=== PATIENT | female | born 1965 | race African-American/Black ===

== ENCOUNTER 2018-09-23 21:18 | Emergency (ER) | payer OTHER ==
[2018-09-23 21:36] VITALS: BP 165/105
[2018-09-23] MEDS ORDERED: Amoxicillin PO (*) 500 MG CAP PO ONE (21:55)
--- NOTE | 2018-09-23 21:59 | UC ---
Respiratory Complaint HPI - HPI Summary HPI Summary: 53 yo female with one week hx of sinus pressure and pain/post nasal drip and sore throat no f/c some productive cough no n/v/d - History of Current Complaint Chief Complaint: UCRespiratory Stated Complaint: SORE THROAT Time Seen by Provider: 09/23/18 21:26 Hx Obtained From: Patient Onset/Duration: Gradual Onset, Lasting Days Timing: Constant Severity Initially: Mild Severity Currently: Severe Pain Intensity: 8 Pain Scale Used: 0-10 Numeric Character: Cough: Productive Aggravating Factors: Nothing Alleviating Factors: Nothing Associated Signs And Symptoms: Positive: Nasal Congestion, Hoarseness, Sinus Discomfort. Negative: Dyspnea, Fever, Chills, Pleuritic Chest Pain, Wheezing, Hemoptysis, Dizziness, Calf Pain, Calf Swelling, Edema - Allergies/Home Medications Allergies/Adverse Reactions: Allergies Allergy/AdvReac Type Severity Reaction Status Date / Time No Known Allergies Allergy Verified 09/23/18 21:36 PMH/Surg Hx/FS Hx/Imm Hx Previously Healthy: Yes - Surgical History Surgical History: None - Family History Known Family History: Positive: Hypertension, Diabetes, Respiratory Disease - Social History Alcohol Use: None Substance Use Type: None Smoking Status (MU): Never Smoked Tobacco Review of Systems All Other Systems Reviewed And Are Negative: Yes Constitutional: Positive: Negative Skin: Positive: Negative Eyes: Positive: Negative ENT: Positive: Sore Throat, Ear Ache, Nasal Discharge, Sinus Congestion, Sinus Pain/Tenderness Respiratory: Positive: Cough Cardiovascular: Positive: Negative Gastrointestinal: Positive: Negative Genitourinary: Positive: Negative Motor: Positive: Negative Neurovascular: Positive: Negative Musculoskeletal: Positive: Negative Neurological: Positive: Negative Psychological: Positive: Negative Physical Exam Triage Information Reviewed: Yes Appearance: Well-Appearing, No Pain Distress, Well-Nourished Vital Signs: Initial Vital Signs Temp 98.8 F 09/23/18 21:29 Pulse 90 09/23/18 21:29 Resp 16 09/23/18 21:29 BP 165/105 09/23/18 21:29 Pulse Ox 99 09/23/18 21:29 Vital Signs Reviewed: Yes Eyes: Positive: Conjunctiva Clear ENT: Positive: Hearing grossly normal, Pharyngeal erythema, Hoarse voice. Negative: Nasal congestion, Nasal drainage, Tonsillar swelling, Tonsillar exudate, Trismus, Sinus tenderness, Uvula midline Neck: Positive: Supple, Nontender, Enlarged Nodes @ - ant cervical Respiratory: Positive: Lungs clear, Normal breath sounds, No respiratory distress, No accessory muscle use Cardiovascular: Positive: RRR, No Murmur Musculoskeletal: Positive: ROM Intact, No Edema Neurological: Positive: Alert Psychological Exam: Normal Skin Exam: Normal Respiratory Course/Dx - Course Course Of Treatment: strep (-) - Differential Dx/Diagnosis Provider Diagnosis: Acute sinusitis, Elevated BP without diagnosis of hypertension Discharge - Sign-Out/Discharge Documenting (check all that apply): Patient Departure All imaging exams completed and their final reports reviewed: No Studies - Discharge Plan Condition: Stable Disposition: HOME Prescriptions: Amoxicillin PO (*) [Amoxicillin 875 MG (*)] 875 mg PO BID #14 tab Patient Education Materials: Sinusitis (ED) Referrals: Paul King MD [Primary Care Provider] - 5 Days (if not better) Additional Instructions: saline nasal spray 2 sprays each nostril twice daily warm facial compresses - Billing Disposition and Condition Condition: STABLE Disposition: Home
== END 2018-09-23 22:18 | disposition home or self-care (01) ==
LOC: UCEAST 21:18
DX: J01.90 Acute sinusitis, unspecified (principal); J02.9 Acute pharyngitis, unspecified; R03.0 Elevated blood-pressure reading, without diagnosis of hypertension
CPT/HCPCS: 87651; 99202; A9270-GY; G0463

== ENCOUNTER → 2018-11-29 21:17 | Emergency (ER) | payer OTHER ==
[~2018-11-29 21:17] MED LIST: Amoxicillin/Clavulanate TAB* 875 MG PO ONE; Ibuprofen TAB* 600 MG PO ONE
[2018-11-29 21:42] VITALS: BP 128/94
--- NOTE | 2018-11-29 22:06 | UC ---
UC General HPI - HPI Summary HPI Summary: 53-year-old female comes in with a chief complaint of right-sided facial pain. Started more than a week ago initially episodes lasted less than a day. It's been getting worse and more frequent. It's been constant the last 4 days. Pain is worse with palpation of the right side of the face and also with chewing. She does have dental fillings in her right-sided molars and they hurt more when she drinks cold water. The areas of tenderness at the angle of the jaw over the parotid gland at the TMJ on the right and into the lower right temporal area. No fevers or chills. No rash. - History of Current Complaint Chief Complaint: UCDentalProblem Stated Complaint: JAW PAIN Time Seen by Provider: 11/29/18 21:48 Hx Last Menstrual Period: 4 months ago Pain Intensity: 10 - Allergy/Home Medications Allergies/Adverse Reactions: Allergies Allergy/AdvReac Type Severity Reaction Status Date / Time No Known Allergies Allergy Verified 11/29/18 21:33 PMH/Surg Hx/FS Hx/Imm Hx Previously Healthy: Yes - Surgical History Surgical History: None - Family History Known Family History: Positive: Hypertension, Diabetes, Respiratory Disease - Social History Alcohol Use: None Substance Use Type: None Smoking Status (MU): Never Smoked Tobacco Review of Systems All Other Systems Reviewed And Are Negative: Yes Constitutional: Positive: Negative Skin: Positive: Negative Eyes: Positive: Negative ENT: Positive: Dental Pain, Ear Ache. Negative: Sore Throat, Nasal Discharge Respiratory: Positive: Negative Cardiovascular: Positive: Negative Gastrointestinal: Positive: Negative Genitourinary: Positive: Negative Motor: Positive: Negative Neurovascular: Positive: Negative Musculoskeletal: Positive: Negative Neurological: Positive: Negative Psychological: Positive: Negative Is Patient Immunocompromised?: No Physical Exam Triage Information Reviewed: Yes Appearance: Well-Appearing, No Pain Distress, Well-Nourished Vital Signs: Initial Vital Signs Temp 99.4 F 11/29/18 21:33 Pulse 77 11/29/18 21:33 Resp 18 11/29/18 21:33 BP 190/111 11/29/18 21:33 Pulse Ox 98 11/29/18 21:33 Vital Signs Reviewed: Yes Eye Exam: Normal Eyes: Positive: Conjunctiva Clear ENT: Positive: Pharynx normal, TMs normal, Uvula midline, Other - No ear canal inflammation. Patient is tender to palpation over the right parotid gland and also at the right TMJ. There is no rash seen on the face. She is tender in front of the ear in the lower temporal area but not in the full right femoral distribution.. Negative: Tonsillar swelling, Tonsillar exudate, Muffled voice, Hoarse voice Dental: Positive: Other: - Patient does have multiple fillings in both the upper and lower molars on the right side. Neck: Positive: Supple, Other: - No tenderness of the submandibular glands. Respiratory: Positive: No respiratory distress Musculoskeletal Exam: Normal Musculoskeletal: Positive: Strength Intact, ROM Intact Neurological Exam: Normal Neurological: Positive: Alert, Muscle Tone Normal Psychological Exam: Normal Psychological: Positive: Normal Response To Family, Age Appropriate Behavior Skin Exam: Normal Course/Dx - Course Course Of Treatment: I discussed the differential diagnosis of the area of her pain with the patient. TMJs a possibility as is right sided parotid gland inflammation. Temporal arteritis is less likely given the distribution of the pain down in to the jaw and cheek and it does not extend completely into the superior portion of the temporal area of the skull. No rash so I do not believe shingles is involved. The eardrums look normal year canals are normal also do not believe an ear infection is a problem. She does have multiple dental fillings and she has some pain in that area so dental infection is a possibility. Uvula midline no mass in the throat no difficulty swallowing. Overall the plan is to treat with anti-inflammatories such as ibuprofen and also treat with an antibiotic to cover any possible infection. Also told her about TMJ and sialoadenitis and the appropriate treatments. If not improved follow-up with primary care doctor and/or ENT. Get reevaluated sooner if worse. - Diagnoses Provider Diagnosis: Right-sided face pain Discharge - Sign-Out/Discharge Documenting (check all that apply): Patient Departure All imaging exams completed and their final reports reviewed: No Studies - Discharge Plan Condition: Stable Disposition: HOME Prescriptions: Amoxicillin/Clavulanate TAB* [Augmentin TAB 875*] 875 mg PO BID #18 tab Ibuprofen TAB* [Motrin TAB* 600 MG] 600 mg PO Q8H PRN #20 tab PRN Reason: Pain Patient Education Materials: Temporomandibular Disorder (ED), Sialoadenitis (ED ) Referrals: Paul King MD [Primary Care Provider] - Mario Cross MD [Medical Doctor] - Additional Instructions: FOLLOW UP WITH YOUR PRIMARY CARE DOCTOR OR DR CROSS, ENT, IF NOT COMPLETELY IMPROVED. GET RECHECKED SOONER IF YOUR CONDITION WORSENS OR ANY QUESTIONS OR CONCERNS. - Billing Disposition and Condition Condition: STABLE Disposition: Home
== END | disposition home or self-care (01) ==
LOC: UCEAST 21:17
DX: R51 Headache (principal); R68.84 Jaw pain
CPT/HCPCS: 99212; A9270-GY; G0463

== ENCOUNTER 2023-02-22 19:29 | Inpatient (IN) ==
[2023-02-22] MEDS ORDERED: Azithromycin 500 mg/250 ml NS 500 MG/250 ML BAG IVPB ONE (21:36)
[2023-02-22] MEDS ORDERED: LACTATED RINGERS SEPSIS IV ONE (21:36)
[2023-02-22] MEDS ORDERED: Piperacillin/Tazobac 3.375 BAG 3.375 GM/100 ML BAG IV ONE (21:36)
[2023-02-22] MEDS ORDERED: Lactated Ringers 1000 ml BAG 1,000 ML IV ONE ×2 (21:44→23:28)
[2023-02-22] MEDS ORDERED: Vancomycin 1,500 MG in NS 0.9% 250 ml 250 ML IVPB SCH (22:00)
[2023-02-22 22:18] LABS: ABS Lymphocytes 0.4 10^3/uL (1.0-4.8); ABS Monocytes 0.6 10^3/uL (0.0-0.9); ABS Neutrophils 12.3 10^3/uL (1.5-7.6); Hematocrit 33.1 % (35-45); Hemoglobin 11.5 g/dL (11.5-14.3); Lymphocyte % 3.3 %; Mean Corpuscular Hemoglobin 32.4 pg (27-33); Mean Corpuscular Hgb Conc 34.9 g/dL (31-36); Mean Corpuscular Volume 92.7 fL (80-97); Mean Platelet Volume 7.5 fL (7.5-11.2); Platelet Count 308 10^3/uL (150-450); Red Blood Count 3.57 10^6/uL (3.63-4.92); Red Cell Distribution Width 13.6 % (12-17); White Blood Count 13.4 10^3/uL (3.8-11.8)
[2023-02-22 22:31] LABS: Albumin 3.3 g/dL (3.2-5.2); Calcium 8.8 mg/dL (8.6-10.3); Potassium 2.9 mmol/L (3.5-5.0); Total Bilirubin 1.1 mg/dL (0.2-1.0)
[2023-02-22 22:32] LABS: Activated Partial Thrombo Time 31.5 seconds (26.0-38.0); INR 1.18 (0.83-1.13)
[2023-02-22] MEDS ORDERED: Ondansetron 4 mg VIAL 2 MG/ML 2 ml VIAL IV ONE (22:35)
[2023-02-22 22:38] LABS: Albumin/Globulin Ratio 0.8 (1-3); C Reactive Protein 460.28 mg/L (<8.01); Creatinine, Serum 1.96 mg/dL (0.51-0.95); Globulin 4.2 g/dL (2-4); Total Protein 7.5 g/dL (6.4-8.9); eGFR CKD-EPI 29.1 (>60)
[2023-02-23] LABS: High Sensitivity Troponin 1 Hr 13 pg/mL (<15)
[2023-02-23 00:35] LABS: Urine Amorphous Crystals Present (Absent); Urine Appearance Cloudy; Urine Bacteria 1+ (Absent); Urine Bilirubin Negative (Negative); Urine Blood 2+ (Negative); Urine Color Yellow; Urine Glucose Negative (Negative); Urine Ketones Negative (Negative); Urine Nitrite Negative (Negative); Urine Protein 2+(100 mg/dL) (Negative); Urine Red Blood Cell 2+(6-10/hpf) (Absent); Urine Specific Gravity 1.012 (1.002-1.030); Urine Squamous Epithelial Cell Present (Absent); Urine Urobilinogen Negative (Negative); Urine White Blood Cell 1+(6-10/hpf) (Absent); Urine Yeast Present (Absent)
[2023-02-23] MEDS ORDERED: Potassium Chlor 20 meq TAB.ER PO ONE ×2 (02:05→05:00)
[2023-02-23] MEDS ORDERED: Lactated Ringers 1000 ml BAG 1,000 ML IV SCH (03:00)
[2023-02-23] MEDS: Enoxaparin 30 MG/0.3 ML SYR SUBCUT SCH (03:38)
[2023-02-23] MEDS: NS 0.9% 1000 ml BAG 1,000 ML IV SCH ×2 (03:39→17:34)
[2023-02-23] MEDS ORDERED: Psyllium PAK PO PRN (03:46)
[2023-02-23 06:37] LABS: Hematocrit 31.2 % (35-45); Hemoglobin 10.8 g/dL (11.5-14.3); Mean Corpuscular Hemoglobin 32.2 pg (27-33); Mean Corpuscular Hgb Conc 34.6 g/dL (31-36); Mean Platelet Volume 7.7 fL (7.5-11.2); Platelet Count 275 10^3/uL (150-450); Red Blood Count 3.35 10^6/uL (3.63-4.92); Red Cell Distribution Width 13.6 % (12-17); White Blood Count 15.2 10^3/uL (3.8-11.8)
[2023-02-23 06:41] LABS: Potassium 2.9 mmol/L (3.5-5.0)
[2023-02-23 07:43] LABS: ABS Lymphocytes 0.7 10^3/uL (1.0-4.8); ABS Monocytes 0.8 10^3/uL (0.0-0.9); ABS Neutrophils 13.6 10^3/uL (1.5-7.6); Eosinophil % 0.1 %; Lymphocyte % 4.8 %
[2023-02-23] MEDS ORDERED: Influenza vaccine *QUAD* *2023-24* 0.5 ML SYRINGE IM ONE (09:00)
[2023-02-23] MEDS ORDERED: Magnesium Sulfate 2 gm BAG 2 GM/50 ML BAG IVPB ONE (09:06)
[2023-02-23 11:34] LABS: Albumin 2.8 g/dL (3.2-5.2); Calcium 8.4 mg/dL (8.6-10.3); Magnesium 2.2 mg/dL (1.9-2.7)
[2023-02-23 11:41] LABS: Albumin/Globulin Ratio 0.7 (1-3); Creatinine, Serum 1.96 mg/dL (0.51-0.95); Globulin 3.8 g/dL (2-4); Total Protein 6.6 g/dL (6.4-8.9); eGFR CKD-EPI 29.1 (>60)
[2023-02-23] MEDS: KCL 20 MEQ/100 ML IVPREMIX 20 MEQ/100 ML BAG IV SCH ×3 (13:40→20:06)
[2023-02-23] MEDS ORDERED: Acetylcysteine INHALATION SOL 200 MG/ML NEB.SOLN 10 ML INH PRN (17:17)
[2023-02-23] MEDS: Azithromycin 500 mg/250 ml NS 500 MG/250 ML BAG IVPB SCH (22:47)
[2023-02-24] MEDS: NS 0.9% 1000 ml BAG 1,000 ML IV SCH (03:27)
[2023-02-24] MEDS: Enoxaparin 30 MG/0.3 ML SYR SUBCUT SCH (03:29)
[2023-02-24 05:49] LABS: Hemoglobin 10.1 g/dL (11.5-14.3); Mean Corpuscular Hemoglobin 32.5 pg (27-33); Mean Corpuscular Hgb Conc 34.9 g/dL (31-36); Mean Corpuscular Volume 93.3 fL (80-97); Mean Platelet Volume 7.5 fL (7.5-11.2); Platelet Count 284 10^3/uL (150-450); Red Blood Count 3.11 10^6/uL (3.63-4.92); Red Cell Distribution Width 13.7 % (12-17); White Blood Count 12.9 10^3/uL (3.8-11.8)
[2023-02-24 06:10] LABS: Albumin 2.7 g/dL (3.2-5.2); Creatinine, Serum 0.85 mg/dL (0.51-0.95); Magnesium 2.2 mg/dL (1.9-2.7); Potassium 3.7 mmol/L (3.5-5.0); eGFR CKD-EPI 79.4 (>60)
[2023-02-24 06:11] LABS: Albumin/Globulin Ratio 0.8 (1-3); Globulin 3.3 g/dL (2-4); Total Bilirubin 0.6 mg/dL (0.2-1.0)
[2023-02-24 06:15] LABS: ABS Eosinophils 0.1 10^3/uL (0.0-0.5); ABS Lymphocytes 0.9 10^3/uL (1.0-4.8); ABS Monocytes 0.8 10^3/uL (0.0-0.9); ABS Nucleated RBC 0.01 10^3/ul; Eosinophil % 0.9 %; Lymphocyte % 6.7 %; Nucleated Red Blood Cells % 0.1 /100 WBC (0.0-0.4)
[2023-02-24] MEDS ORDERED: KCL 20 MEQ/100 ML IVPREMIX 20 MEQ/100 ML BAG IV ONE (07:33)
[2023-02-24] MEDS: Albuterol 2.5mg/3 ml (0.083%) NEB.SOLN INH PRN ×2 (17:39→21:37)
[2023-02-24] MEDS: Azithromycin 500 mg/250 ml NS 500 MG/250 ML BAG IVPB SCH (21:28)
[2023-02-25] MEDS ORDERED: Enoxaparin 40 MG/0.4 ML SYR SUBCUT SCH (03:00)
[2023-02-25 06:17] LABS: Hematocrit 27.7 % (35-45); Hemoglobin 9.5 g/dL (11.5-14.3); Mean Corpuscular Hemoglobin 32.2 pg (27-33); Mean Corpuscular Hgb Conc 34.4 g/dL (31-36); Mean Corpuscular Volume 93.6 fL (80-97); Mean Platelet Volume 7.4 fL (7.5-11.2); Platelet Count 325 10^3/uL (150-450); Red Blood Count 2.96 10^6/uL (3.63-4.92); Red Cell Distribution Width 13.9 % (12-17); White Blood Count 12.2 10^3/uL (3.8-11.8)
[2023-02-25 06:26] LABS: Calcium 8.3 mg/dL (8.6-10.3); Creatinine, Serum 0.54 mg/dL (0.51-0.95); Magnesium 1.7 mg/dL (1.9-2.7); Potassium 3.8 mmol/L (3.5-5.0); eGFR CKD-EPI 106.7 (>60)
[2023-02-25 06:27] LABS: ABS Eosinophils 0.2 10^3/uL (0.0-0.5); ABS Monocytes 0.8 10^3/uL (0.0-0.9); ABS Neutrophils 10.1 10^3/uL (1.5-7.6); Eosinophil % 1.6 %; Lymphocyte % 8.4 %
[2023-02-25] MEDS ORDERED: Magnesium Sulfate IV 3 GM in NS 0.9% 100 ml BAG 100 ML IVPB ONE (07:09)
[2023-02-25] MEDS ORDERED: Potassium Chlor 20 meq TAB.ER PO ONE (07:09)
[2023-02-25] MEDS ORDERED: Influenza vaccine *QUAD* *2023-24* 0.5 ML SYRINGE IM ONE (09:00)
[2023-02-25] MEDS: Albuterol 2.5mg/3 ml (0.083%) NEB.SOLN INH PRN (12:24)
[2023-02-25] MEDS ORDERED: Sodium Chloride(INHALANT) 7% 4 ML NEB.SOLN INH ONE (16:37)
[2023-02-25] MEDS: Azithromycin 500 mg/250 ml NS 500 MG/250 ML BAG IVPB SCH (20:16)
[2023-02-25] MEDS: Enoxaparin 40 MG/0.4 ML SYR SUBCUT SCH (22:08)
[2023-02-26] MEDS: Enoxaparin 40 MG/0.4 ML SYR SUBCUT SCH (20:04)
[2023-02-26] MEDS: Albuterol 2.5mg/3 ml (0.083%) NEB.SOLN INH PRN (20:23)
[2023-02-27 05:58] LABS: ABS Eosinophils 0.1 10^3/uL (0.0-0.5); ABS Lymphocytes 1.3 10^3/uL (1.0-4.8); ABS Monocytes 0.5 10^3/uL (0.0-0.9); ABS Neutrophils 8.2 10^3/uL (1.5-7.6); Eosinophil % 1.2 %; Hematocrit 28.3 % (35-45); Hemoglobin 9.7 g/dL (11.5-14.3); Lymphocyte % 12.9 %; Mean Corpuscular Hemoglobin 32.2 pg (27-33); Mean Corpuscular Hgb Conc 34.4 g/dL (31-36); Mean Corpuscular Volume 93.7 fL (80-97); Mean Platelet Volume 6.9 fL (7.5-11.2); Platelet Count 533 10^3/uL (150-450); Red Blood Count 3.02 10^6/uL (3.63-4.92); Red Cell Distribution Width 13.7 % (12-17); White Blood Count 10.2 10^3/uL (3.8-11.8)
[2023-02-27 06:32] LABS: Calcium 8.3 mg/dL (8.6-10.3); Creatinine, Serum 0.5 mg/dL (0.51-0.95); Magnesium 1.5 mg/dL (1.9-2.7); Potassium 4.2 mmol/L (3.5-5.0); eGFR CKD-EPI 108.6 (>60)
[2023-02-27] MEDS ORDERED: Magnesium Sulf 4 GM/100 ML IV 4,000 MG/100 ML BAG IVPB ONE (07:29)
[2023-02-27] MEDS: Albuterol 2.5mg/3 ml (0.083%) NEB.SOLN INH PRN (07:36)
[2023-02-27 13:18] VITALS: BP 139/88
== END 2023-02-27 14:00 | disposition home or self-care (01) | DRG 137 ==
LOC: ED 19:29 → EDHOLD 19:29 → MED 02-23 00:45 → SUATTDRO 02-23 00:45 → OBSVTOIN 02-23 01:40 → MED 02-23 02:15
PROVIDERS: ADMIT Internal Medicine; ATTEND Student in an Organized Health Care Education/Training Program